=== PATIENT | male | born 1965 | race African-American/Black ===

== ENCOUNTER 2024-04-01 22:56 | Emergency (ER) | payer OTHER ==
[~2024-04-01] VITALS: Ht 188 cm; Wt 136.0 kg
[~2024-04-01 22:56] MED LIST: AMOX1TAB16 MT; ASPI-1406 PO; FAMO20TA8 PO; LIP40 PO; OXYC-100 MT
[2024-04-01 23:07] VITALS: O2SAT 96
[2024-04-01] MEDS: DIAZEPAM 2 MG TABLET PO ONE (23:51)
[2024-04-01 23:59] LABS: CHLORIDE 104 mEq/L (98-107); POTASSIUM 3.4 mEq/L (3.5-5.1); SODIUM 139 mEq/L (136-145)
[2024-04-02] LABS: CARBON DIOXIDE 24 mEq/L (21-32)
[2024-04-02 00:05] LABS: ETHANOL BLOOD 116 mg/dL (<10); GLUCOSE 137 mg/dL (70-105); UREA NITROGEN BLOOD 11 mg/dL (9-23)
[2024-04-02 00:13] LABS: BASOPHILS % 0.4 % (0.0-2.0); EOSINOPHILS % 1.9 % (0.0-5.0); HEMATOCRIT. 41.8 % (42.0-52.0); HEMOGLOBIN. 13.9 g/dL (14.0-18.0); LYMPHOCYTES % 44.2 % (20.0-50.0); MEAN CORPUSCULAR HEMOGLOBIN 30.3 pg (28.0-32.0); MEAN CORPUSCULAR HGB CONC 33.2 g/dL (31.0-37.0); MEAN CORPUSCULAR VOLUME 91.2 fL (80.0-94.0); MEAN PLATELET VOLUME 7.3 fl (7.4-10.4); MONOCYTES % 9.5 % (2.0-8.0); PLATELET 307 x1000/uL (130-400); RED BLOOD CELL COUNT 4.59 mill/uL (4.7-6.1); RED CELL DISTRIBUTION WIDTH 13.8 % (11.6-14.6); WHITE BLOOD COUNT 6.8 x1000/uL (4.5-11.0)
[2024-04-02] MEDS: POTASSIUM CHLORIDE 10MEQ TABLET SR PO ONE (01:36)
[2024-04-02 01:37] VITALS: BP 146/91; PULSE 116; RESP 20; TEMP 36.8; O2SAT 97
== END 2024-04-02 02:00 | disposition home or self-care (01) ==
LOC: ER 22:56
DX: F10.129 Alcohol abuse with intoxication, unspecified (principal); F19.10 Other psychoactive substance abuse, uncomplicated; E11.65 Type 2 diabetes mellitus with hyperglycemia; F14.90 Cocaine use, unspecified, uncomplicated; I10 Essential (primary) hypertension; Z79.82 Long term (current) use of aspirin; Z79.899 Other long term (current) drug therapy; Z87.891 Personal history of nicotine dependence
CPT/HCPCS: 36415; 80048; 80320; 82962; 85025; 93005; 99284; G0480